=== PATIENT | male | born 1970 | race Caucasian/White ===

== ENCOUNTER 2022-02-05 10:43 | Day surgery (SDC) | payer BC ==
[2022-02-03 14:07] VITALS: BMI 32.8
[~2022-02-05 10:43] MED LIST: LACTATED RINGERS 1,000 ML IV SCH; LIDOCAINE 1% (10MG/ML) FOR IV START INTRADERMA PRN
[2022-02-05] MEDS ORDERED: LACTATED RINGERS 1,000 ML IV ONE (11:01)
[2022-02-05 11:05] VITALS: RESP 16; TEMP 98.5
[2022-02-05] MEDS ORDERED: PROPOFOL 10 MG/ML 20 ML VIAL IV ONE (12:06)
--- NOTE | 2022-02-05 12:19 | P.PCN ---
Date of Procedure: 02/05/22 Procedure(s) Performed: BRIEF HISTORY: Patient is a 51-year-old pleasant white male scheduled for an elective colonoscopy as a part of evaluation of prior history of colon polyps. He also has family history of colon cancer diagnosed father at age 52. PROCEDURE PERFORMED: Colonoscopy. PREOPERATIVE DIAGNOSIS: History of colon polyps/family history of colon cancer IV sedation per Anesthesia. PROCEDURE: After informed consent was obtained, the patient, was brought into the endoscopy unit. IV sedation was administered by Anesthesia under continuous monitoring. Digital rectal examination was normal. Initially the Olympus CF-160 flexible video colonoscope was then inserted in the rectum, gradually advanced into the cecum without any difficulty. Careful examination was performed as the scope was gradually being withdrawn. Ileocecal valve and the appendiceal orifice were visualized and appeared normal. Prep was excellent. Mucosa of the cecum, ascending colon, transverse colon, descending colon, sigmoid colon, and rectum appeared normal. Scattered sigmoid diverticulosis Retroflexion was performed in the rectum and no lesions were seen. The patient tolerated the procedure well. IMPRESSION: Normal-appearing colon from rectum to cecum with no evidence of colorectal neoplasia. Scattered sigmoid diverticulosis. RECOMMENDATIONS: Findings of this examination were discussed with the patient well as his family. He was advised to have a repeat colonoscopy in 5 years because of the family history of colon cancer..
[2022-02-05 12:41] VITALS: BP 133/75; PULSE 60
== END 2022-02-05 12:58 | disposition home or self-care (01) ==
LOC: ORWHC2ENDO 10:43
PROVIDERS: ATTEND Internal Medicine Gastroenterology
DX: Z12.11 Encounter for screening for malignant neoplasm of colon (principal); K57.30 Diverticulosis of large intestine without perforation or abscess without bleeding; J45.909 Unspecified asthma, uncomplicated; F41.9 Anxiety disorder, unspecified; Z86.010 Personal history of colon polyps; Z80.0 Family history of malignant neoplasm of digestive organs; Z79.899 Other long term (current) drug therapy
CPT/HCPCS: 45378; J2704